=== PATIENT | female | born 1995 | race Caucasian/White ===

== ENCOUNTER 2018-01-24 09:14 | Inpatient (IN) | payer MEDICAID ==
[~2018-01-24 09:14] MED LIST: METOCLOPRAMIDE 10 MG INJ; ONDANSETRON 4 MG INJ
[2018-01-24] MEDS ORDERED: METHYLERGONOVINE 0.2 MG INJ IM ×2 (09:30→16:30)
[2018-01-24] MEDS ORDERED: CARBOPROST 250 MCG INJ IM ×2 (09:30→16:30)
[2018-01-24] MEDS ORDERED: MISOPROSTOL 200 MCG TAB PR ×2 (09:30→16:30)
[2018-01-24] MEDS ORDERED: CEFAZOLIN 2 GM/50 ML (PMX) 50 ML IVPB (09:30)
[2018-01-24] MEDS ORDERED: OXYTOCIN 30 UNITS/LR 500 ML IV ×2 (09:30)
[2018-01-24 10:06] LABS: ADD MAN DIFF? NO
[2018-01-24 10:19] LABS: BASOPHILS % 0.4 % (0.0-2.0); EOSINOPHILS # 0.1 10^3/ul (0.0-0.5); EOSINOPHILS % 0.6 % (0.0-7.0); HEMATOCRIT 35.5 % (37.0-47.0); HEMOGLOBIN 12.1 g/dl (12.0-16.0); LYMPHOCYTES # 1.5 10^3/ul (0.8-2.9); LYMPHOCYTES % 18.2 % (15.0-51.0); MEAN CORPUSCULAR HEMOGLOBIN 30.8 pg (29.0-33.0); MEAN CORPUSCULAR HGB CONC 34.1 g/dl (32.0-37.0); MEAN CORPUSCULAR VOLUME 90.3 fl (82.0-101.0); MEAN PLATELET VOLUME 11.6 fl (7.4-10.4); MONOCYTE # 0.5 10^3/ul (0.3-0.9); MONOCYTES % 5.3 % (0.0-11.0); NEUTROPHIL # 6.3 10^3/ul (1.6-7.5); NEUTROPHILS % 74.6 % (39.0-77.0); PLATELET COUNT 192 10^3/UL (140-415); RED BLOOD COUNT 3.93 10^6/ul (4.20-5.40); RED CELL DISTRIBUTION WIDTH 13.7 % (11.5-14.5)
[2018-01-24 10:19] LABS: WHITE BLOOD COUNT 8.4 10^3/ul (4.8-10.8)
[2018-01-24 10:27] LABS: INR 0.89; PROTIME 12.1 Sec (11.9-14.9); PT RATIO 0.9
[2018-01-24 10:28] LABS: PARTIAL THROMBOPLASTIN TIME 26.7 Sec (23.0-35.0)
[2018-01-24] MEDS: LACTATED RINGER'S 1,000 ML IV (12:08)
[2018-01-24] MEDS ORDERED: BUPIVACAINE 0.75%/DEXT (SPINAL) 2 ML INJ (14:22)
[2018-01-24] MEDS ORDERED: morphine SULFATE/PF (10 MG/10 ML) INJ (14:22)
[2018-01-24] MEDS ORDERED: OXYTOCIN 10 UNIT INJ ×2 (14:58→15:03)
[2018-01-24] MEDS ORDERED: MIDAZOLAM 1 MG/ML 2 ML INJ (14:59)
[2018-01-24] MEDS ORDERED: MIDAZOLAM 1 MG/ML 2 ML INJ IV (15:00)
[2018-01-24] MEDS ORDERED: MEPERIDINE 25 MG INJ IV (15:00)
[2018-01-24] MEDS ORDERED: ONDANSETRON 4 MG INJ IV (15:00)
[2018-01-24] MEDS ORDERED: ZOLPIDEM 5 MG TAB PO (15:00)
[2018-01-24] MEDS ORDERED: NALBUPHINE HCL (10 MG/1 ML) INJ IV (15:00)
[2018-01-24] MEDS ORDERED: HYDROmorphONE 0.5 MG/0.5 ML SYG IV ×2 (15:00)
[2018-01-24] MEDS ORDERED: NALOXONE (0.4 MG/ML) INJ IV (15:00)
[2018-01-24] MEDS ORDERED: DIPHENHYDRAMINE 50 MG INJ IV ×2 (15:00)
[2018-01-24] MEDS ORDERED: KETOROLAC 30 MG INJ IV (15:00)
[2018-01-24] MEDS ORDERED: METOCLOPRAMIDE 10 MG INJ IV (15:00)
[2018-01-24] MEDS ORDERED: DEXTROSE 5%-LR 1,000 ML IV (16:07)
[2018-01-24] MEDS ORDERED: METHYLERGONOVINE 0.2 MG TAB PO (16:30)
[2018-01-24] MEDS ORDERED: MAGNESIUM HYDROXIDE 30ML CUP PO (16:30)
[2018-01-24 17:23] LABS: RAPID PLASMA REAGIN NONREACTIVE (NR)
[2018-01-24] MEDS: ONDANSETRON 4 MG INJ IV (17:39)
[2018-01-24] MEDS: OXYTOCIN 30 UNITS/LR 500 ML IV ×2 (17:48→21:43)
[2018-01-24] MEDS ORDERED: EPHEDrine SULFATE 50 MG/5 ML SYG (18:21)
[2018-01-24] MEDS: SENNA/DOCUSATE NA (8.6MG/50MG) TAB PO (21:00)
[2018-01-25] MEDS: OXYTOCIN 30 UNITS/LR 500 ML IV (01:38)
[2018-01-25] MEDS ORDERED: OXYTOCIN 30 UNITS/LR 500 ML IV (06:11)
[2018-01-25] MEDS: LACTATED RINGER'S 1,000 ML IV (06:21)
[2018-01-25] MEDS ORDERED: LACTATED RINGER'S 1,000 ML IV (06:30)
[2018-01-25 07:32] LABS: ADD MAN DIFF? NO
[2018-01-25 07:37] LABS: BASOPHILS % 0.3 % (0.0-2.0); EOSINOPHILS % 0.1 % (0.0-7.0); HEMATOCRIT 33.7 % (37.0-47.0); HEMOGLOBIN 11.3 g/dl (12.0-16.0); LYMPHOCYTES # 1.6 10^3/ul (0.8-2.9); LYMPHOCYTES % 17.3 % (15.0-51.0); MEAN CORPUSCULAR HEMOGLOBIN 30.6 pg (29.0-33.0); MEAN CORPUSCULAR HGB CONC 33.5 g/dl (32.0-37.0); MEAN CORPUSCULAR VOLUME 91.3 fl (82.0-101.0); MEAN PLATELET VOLUME 11.4 fl (7.4-10.4); MONOCYTE # 0.6 10^3/ul (0.3-0.9); MONOCYTES % 6.7 % (0.0-11.0); NEUTROPHIL # 6.8 10^3/ul (1.6-7.5); NEUTROPHILS % 74.9 % (39.0-77.0); PLATELET COUNT 172 10^3/UL (140-415); RED BLOOD COUNT 3.69 10^6/ul (4.20-5.40); RED CELL DISTRIBUTION WIDTH 13.8 % (11.5-14.5)
[2018-01-25 07:37] LABS: WHITE BLOOD COUNT 9.1 10^3/ul (4.8-10.8)
[2018-01-25] MEDS: SENNA/DOCUSATE NA (8.6MG/50MG) TAB PO ×2 (09:00→21:54)
[2018-01-25] MEDS ORDERED: DIPHTH/TET/ACEL PERTUSS (ADULT) 0.5 ML VIAL IM* (11:00)
[2018-01-25] MEDS: HYDROCODONE/APAP (5/325) TAB GTB ×2 (14:31→21:55)
[2018-01-25] MEDS: HYDROCODONE/APAP (5/325) TAB NGT (18:23)
[2018-01-25] MEDS: IBUPROFEN 800 MG TAB PO (21:54)
[2018-01-26] MEDS: HYDROCODONE/APAP (5/325) TAB GTB ×3 (05:45→22:00)
[2018-01-26] MEDS: IBUPROFEN 800 MG TAB PO ×3 (05:46→21:33)
[2018-01-26 08:23] LABS: HEPATITIS B SURFACE ANTIGEN NEGATIVE (NEGATIVE)
[2018-01-26] MEDS: SENNA/DOCUSATE NA (8.6MG/50MG) TAB PO ×2 (09:28→21:33)
[2018-01-26] MEDS: LANOLIN 7 GM TUBE TOP (23:35)
[2018-01-27] MEDS: HYDROCODONE/APAP (5/325) TAB GTB ×3 (06:19→21:26)
[2018-01-27] MEDS: IBUPROFEN 800 MG TAB PO ×3 (06:19→21:26)
[2018-01-27] MEDS: SENNA/DOCUSATE NA (8.6MG/50MG) TAB PO ×2 (09:00→21:00)
[2018-01-27] MEDS: MEASLES,MUMPS,RUBELLA VACCINE INJ SC* (09:00)
[2018-01-27] MEDS: DIPHTH/TET/ACEL PERTUSS (ADULT) 0.5 ML VIAL IM* (09:00)
[2018-01-27 13:27] LABS: ADD MAN DIFF? NO
[2018-01-27 13:29] LABS: BASOPHILS % 0.5 % (0.0-2.0); EOSINOPHILS # 0.1 10^3/ul (0.0-0.5); EOSINOPHILS % 0.8 % (0.0-7.0); HEMATOCRIT 36.7 % (37.0-47.0); HEMOGLOBIN 12.3 g/dl (12.0-16.0); LYMPHOCYTES # 1.6 10^3/ul (0.8-2.9); LYMPHOCYTES % 20.3 % (15.0-51.0); MEAN CORPUSCULAR HEMOGLOBIN 31.1 pg (29.0-33.0); MEAN CORPUSCULAR HGB CONC 33.5 g/dl (32.0-37.0); MEAN CORPUSCULAR VOLUME 92.7 fl (82.0-101.0); MEAN PLATELET VOLUME 10.8 fl (7.4-10.4); MONOCYTE # 0.5 10^3/ul (0.3-0.9); NEUTROPHIL # 5.6 10^3/ul (1.6-7.5); PLATELET COUNT 225 10^3/UL (140-415); RED BLOOD COUNT 3.96 10^6/ul (4.20-5.40); RED CELL DISTRIBUTION WIDTH 13.4 % (11.5-14.5)
[2018-01-27 13:29] LABS: WHITE BLOOD COUNT 7.7 10^3/ul (4.8-10.8)
[2018-01-27 13:40] LABS: ADD UMIC YES; UR ASCORBIC ACID NEGATIVE (NEGATIVE); UR BACTERIA MODERATE /HPF (NONE SEEN); UR BILIRUBIN (Dip) NEGATIVE (NEGATIVE); UR BLOOD (Dip) 3+ mg/dL (NEGATIVE); UR CLARITY SLIGHTLY CLOUDY (CLEAR); UR COLOR YELLOW (YELLOW); UR GLUCOSE (Dip) NEGATIVE (NEGATIVE); UR KETONES (Dip) NEGATIVE (NEGATIVE); UR LEUKOCYTE ESTERASE (Dip) TRACE Leu/ul (NEGATIVE); UR NITRITE (Dip) NEGATIVE (NEGATIVE); UR RBC 35 /HPF (0-5); UR SPECIFIC GRAVITY (Dip) 1.009 (1.003-1.030); UR SQUAMOUS EPITHELIAL CELL MODERATE /HPF (FEW); UR TOTAL PROTEIN (Dip) 1+ mg/dl (NEGATIVE); UR UROBILINOGEN (Dip) NEGATIVE (NEGATIVE); UR WBC 11 /HPF (0-5)
[2018-01-27 13:48] LABS: ALANINE AMINOTRANSFERASE 332 IU/L (13-69); ALBUMIN 3.9 g/dl (3.3-4.9); ALBUMIN/GLOBULIN RATIO 1.56; ALKALINE PHOSPHATASE 178 IU/L (42-121); ANION GAP 10 (5-13); ASPARTATE AMINO TRANSFERASE 190 IU/L (15-46); BILIRUBIN,INDIRECT 0.3 mg/dl (0-1.1); BILIRUBIN,TOTAL 0.3 mg/dl (0.2-1.3); BLOOD UREA NITROGEN 5 mg/dl (7-20); CALCIUM 9.2 mg/dl (8.4-10.2); CARBON DIOXIDE 24 mmol/L (21-31); CHLORIDE 107 mmol/L (97-110); CREATININE 0.42 mg/dl (0.44-1.00); Estimated GFR > 60 mL/min (>60); GLUCOSE 96 mg/dl (70-220); POTASSIUM 4.1 mmol/L (3.5-5.1); SODIUM 141 mmol/L (135-144); TOTAL PROTEIN 6.4 g/dl (6.1-8.1); URIC ACID 4.6 mg/dl (3.1-7.9)
[2018-01-28] MEDS: LABETALOL HCL 20MG INJ IV (00:46)
[2018-01-28] MEDS: IBUPROFEN 800 MG TAB PO ×2 (06:00→14:12)
[2018-01-28] MEDS: HYDROCODONE/APAP (5/325) TAB GTB ×2 (06:00→14:00)
[2018-01-28 08:37] LABS: ADD MAN DIFF? NO
[2018-01-28 08:40] LABS: BASOPHILS % 0.3 % (0.0-2.0); EOSINOPHILS # 0.1 10^3/ul (0.0-0.5); EOSINOPHILS % 0.8 % (0.0-7.0); HEMATOCRIT 35.5 % (37.0-47.0); HEMOGLOBIN 11.8 g/dl (12.0-16.0); LYMPHOCYTES # 1.5 10^3/ul (0.8-2.9); LYMPHOCYTES % 22.3 % (15.0-51.0); MEAN CORPUSCULAR HEMOGLOBIN 30.6 pg (29.0-33.0); MEAN CORPUSCULAR HGB CONC 33.2 g/dl (32.0-37.0); MEAN PLATELET VOLUME 10.5 fl (7.4-10.4); MONOCYTE # 0.4 10^3/ul (0.3-0.9); MONOCYTES % 5.9 % (0.0-11.0); NEUTROPHIL # 4.7 10^3/ul (1.6-7.5); NEUTROPHILS % 70.2 % (39.0-77.0); PLATELET COUNT 205 10^3/UL (140-415); RED BLOOD COUNT 3.86 10^6/ul (4.20-5.40); RED CELL DISTRIBUTION WIDTH 13.7 % (11.5-14.5)
[2018-01-28 08:40] LABS: WHITE BLOOD COUNT 6.6 10^3/ul (4.8-10.8)
[2018-01-28] MEDS: LABETALOL 200 MG TAB PO (08:43)
[2018-01-28] MEDS: SENNA/DOCUSATE NA (8.6MG/50MG) TAB PO (09:00)
[2018-01-28 09:01] LABS: ALANINE AMINOTRANSFERASE 365 IU/L (13-69); ALBUMIN 3.6 g/dl (3.3-4.9); ALKALINE PHOSPHATASE 167 IU/L (42-121); ANION GAP 8 (5-13); ASPARTATE AMINO TRANSFERASE 187 IU/L (15-46); BILIRUBIN,INDIRECT 0.4 mg/dl (0-1.1); BILIRUBIN,TOTAL 0.4 mg/dl (0.2-1.3); BLOOD UREA NITROGEN 4 mg/dl (7-20); CALCIUM 9.1 mg/dl (8.4-10.2); CARBON DIOXIDE 24 mmol/L (21-31); CHLORIDE 108 mmol/L (97-110); CREATININE 0.44 mg/dl (0.44-1.00); Estimated GFR > 60 mL/min (>60); GLUCOSE 94 mg/dl (70-220); POTASSIUM 3.9 mmol/L (3.5-5.1); SODIUM 140 mmol/L (135-144); TOTAL PROTEIN 6.6 g/dl (6.1-8.1); URIC ACID 4.4 mg/dl (3.1-7.9)
== END 2018-01-28 19:00 | disposition home or self-care (01) | DRG 788 ==
LOC: L-D 09:14 → PP1 20:24
PROVIDERS: Obstetrics & Gynecology
PROC: 10D00Z1 Extraction of Products of Conception, Low, Open Approach (ICD-10-PCS; principal; 2018-01-24 11:00)
PROC: 3E033VJ Introduction of Other Hormone into Peripheral Vein, Percutaneous Approach (ICD-10-PCS; 2018-01-24 11:00)
DX: O34.211 Maternal care for low transverse scar from previous cesarean delivery (principal); O14.95 Unspecified pre-eclampsia, complicating the puerperium; Z3A.39 39 weeks gestation of pregnancy; Z37.0 Single live birth
CPT/HCPCS: 80053; 81001; 84560; 85025; 85610; 85730; 86592; 86850; 86900; 86901; 87340; 90715; 99464